=== PATIENT | female | born 1960 | race Caucasian/White ===

== ENCOUNTER 2018-07-23 14:26 | Emergency (ER) | payer MEDICARE, MEDICAID ==
[~2018-07-23] VITALS: Ht 170.2 cm; Wt 62.7 kg
[~2018-07-23 14:26] MED LIST: CYAN1TAB29 PO; HYDR-3241 PO; HYDR50TA13 PO; LURA20TA PO; MULT-658 PO; NABU500T PO; OMEP-110 PO; PRAZ2CAP2 PO; vitamin b PO
[2018-07-23] MEDS ORDERED: LORazepam 1MG TABLET PO ONE (15:00)
[2018-07-23] MEDS ORDERED: SODIUM CHLORIDE 0.9% 1,000ML IVBOLUS ONE (15:00)
[2018-07-23] MEDS ORDERED: SODIUM CHLORIDE FLUSH 10ML SYR IVF ONE (15:00)
[2018-07-23] MEDS ORDERED: LORazepam 1MG TABLET ONE (15:09)
[2018-07-23 15:32] LABS: ALANINE AMINOTRANSFERASE 34 U/L (12-78); ALBUMIN 2.7 g/dL (3.4-5.0); ANION GAP 12 mmol/L (5-15); CALCIUM 7.8 mg/dL (8.5-10.1); CHLORIDE 102 mmol/L (98-107); CREATININE 0.76 mg/dL (0.55-1.02)
[2018-07-23 15:36] LABS: ALKALINE PHOSPHATASE 176 U/L (45-117); BASOPHILS # (AUTO) 0.11 x10^3/uL (0-0.1); BASOPHILS % (AUTO) 1 % (0-1); BILIRUBIN,TOTAL 0.4 mg/dL (0.2-1.0); EOSINOPHILS # (AUTO) 0.13 x10^3/uL (0-0.4); EOSINOPHILS % (AUTO) 1 % (1-7); LYMPHOCYTES # (AUTO) 2.03 x10^3/uL (1-3.4); LYMPHOCYTES % (AUTO) 21 % (22-44); MD NO; MEAN CORPUSCULAR HGB CONC 33.7 g/dL (32.4-35.8); MEAN CORPUSCULAR VOLUME 100.9 fL (80-100); MEAN PLATELET VOLUME 8.2 fL (7.4-10.4); MONOCYTES # (AUTO) 0.66 x10^3/uL (0.2-0.8); MONOCYTES % (AUTO) 7 % (2-9); NEUTROPHILS # (AUTO) 6.55 x10^3/uL (1.8-6.8); NEUTROPHILS % (AUTO) 69 % (42-75); PLATELET COUNT 181 x10^3/uL (130-400); RED BLOOD COUNT 3.83 x10^6/uL (3.82-5.3); RED CELL DISTRIBUTION WIDTH 13.6 % (9.6-15.2); TOTAL PROTEIN 6.6 g/dL (6.4-8.2)
[2018-07-23 15:43] LABS: PROTHROMBIN TIME 10.3 Seconds (9.6-11.5)
[2018-07-23] MEDS ORDERED: IBUPROFEN 200 MG TABLET ONE (16:14)
[2018-07-23] MEDS ORDERED: IBUPROFEN 200 MG TABLET PO ONE (16:30)
[2018-07-23 16:51] VITALS: BP 129/70
== END 2018-07-23 16:56 | disposition home or self-care (01) ==
LOC: ED 15:00
DX: F10.220 Alcohol dependence with intoxication, uncomplicated (principal); R11.10 Vomiting, unspecified; F11.23 Opioid dependence with withdrawal; F17.200 Nicotine dependence, unspecified, uncomplicated
CPT/HCPCS: 36415; 80053; 80307; 85025; 85610; 85730; 96360; 99284; J7030

== ENCOUNTER 2018-11-28 15:58 | Emergency (ER) | payer MEDICARE, MEDICAID ==
[~2018-11-28] VITALS: Ht 170.2 cm; Wt 58.5 kg
[2018-11-28] MEDS ORDERED: ALBUTEROL/IPRATROPIUM 2.5MG/0.5MG, 3 ML NPPB ONE (16:30)
[2018-11-28 16:46] LABS: BASOPHILS # (AUTO) 0.02 x10^3/uL (0-0.1); BASOPHILS % (AUTO) 0 % (0-1); EOSINOPHILS # (AUTO) 0.23 x10^3/uL (0-0.4); EOSINOPHILS % (AUTO) 2 % (1-7); LYMPHOCYTES # (AUTO) 2.39 x10^3/uL (1-3.4); LYMPHOCYTES % (AUTO) 21 % (22-44); MD NO; MEAN CORPUSCULAR HEMOGLOBIN 33.2 pg (27.0-34.8); MEAN CORPUSCULAR HGB CONC 32.8 g/dL (32.4-35.8); MEAN CORPUSCULAR VOLUME 101.4 fL (80-100); MONOCYTES # (AUTO) 0.21 x10^3/uL (0.2-0.8); MONOCYTES % (AUTO) 2 % (2-9); NEUTROPHILS # (AUTO) 8.75 x10^3/uL (1.8-6.8); NEUTROPHILS % (AUTO) 75 % (42-75); PLATELET COUNT 324 x10^3/uL (130-400); RED BLOOD COUNT 4.81 x10^6/uL (3.82-5.3); RED CELL DISTRIBUTION WIDTH 14.6 % (9.6-15.2)
[2018-11-28 16:55] LABS: ALANINE AMINOTRANSFERASE 72 U/L (12-78); ALBUMIN 4.2 g/dL (3.4-5.0); ANION GAP 17 mmol/L (5-15); CALCIUM 8.4 mg/dL (8.5-10.1); CHLORIDE 103 mmol/L (98-107); CREATININE 0.84 mg/dL (0.55-1.02)
[2018-11-28 16:59] LABS: ALKALINE PHOSPHATASE 124 U/L (45-117); BILIRUBIN,TOTAL 0.5 mg/dL (0.2-1.0); TOTAL PROTEIN 8.1 g/dL (6.4-8.2)
[2018-11-28 17:00] LABS: RAPID INFLUENZA A Negative (Negative); RAPID INFLUENZA B Negative (Negative)
--- NOTE | 2018-11-28 17:03 | NUR ---
TO ROOM FROM LOBBY.
[2018-11-28] MEDS ORDERED: ALBUTEROL/IPRATROPIUM 2.5MG/0.5MG, 3 ML ONE (17:11)
--- NOTE | 2018-11-28 17:11 | NUR ---
CRUZ [phone] [employer].
--- NOTE | 2018-11-28 18:21 | NUR ---
provided juice, pudding and crackers
--- NOTE | 2018-11-28 19:32 | NUR ---
AWAITING RE-EVAL. CONTINUE TO MONITOR. NO DISTRESS
--- NOTE | 2018-11-28 20:21 | NUR ---
ATTMPED TO GET PT TO GIVE URINE SAMPLE. STATES UNABLE TO GIVE SAMPLE AT THIS TIME.
[2018-11-28 20:30] VITALS: BP 130/78
--- NOTE | 2018-11-28 20:51 | NUR ---
PT STATES SHE CANNOT GIVE URINE AT THIS TIME AND DOES NOT WANT TO ATTEMPT TO.
--- NOTE | 2018-11-28 21:31 | NUR ---
Shruti vásquez in ED - 11/28/18 at 2132 by MORGAN MD AT BEDSIDE SPEAKING WITH PT ABOUT THE PLAN TO DISCHARGE
--- NOTE | 2018-11-28 21:32 | NUR ---
PT SPEAKING WITH PT. ANSWERING QUESTIONS ABOUT PLAN OF CARE AND FINDINGS
[2018-11-28 21:57] LABS: CULTURE INDICATED? YES; MICROSCOPIC INDICATED
== END 2018-11-28 21:45 | disposition home or self-care (01) ==
LOC: ED 17:47
DX: F10.220 Alcohol dependence with intoxication, uncomplicated (principal); Z88.2 Allergy status to sulfonamides
CPT/HCPCS: 36415; 71046; 80053; 80307; 81001; 83690; 83735; 83880; 85025; 87086; 87400; 93005; 94640; 99284; J7512; J7620